=== PATIENT | male | born 1990 | race Caucasian/White ===

== ENCOUNTER 2016-06-17 15:27 | Emergency (ER) | payer BC ==
[2016-06-17 16:01] VITALS: BP 103/65
--- NOTE | 2016-06-17 16:12 | UC ---
Throat Pain/Nasal Rodney HPI - HPI Summary HPI Summary: The patient comes in today for: 1. Sore throat, chest congestion: Onset: 3 days ago. Palliative/provocative: Swallowing makes it worse. Quality: Scratchy. Region: Bilateral posterior pharynx. Severity: 4/10 Time: Constant. Associated symptoms: Rhinitis: [place] Sinus pressure: None. Fevers: last night 101.4 Cough: Present, but not productive. Wheezing: None Chest pain: None at this time. Dyspnea: none. INhaler use: when he was 7-8 years old. * - History of Current Complaint Chief Complaint: UCGeneralIllness Stated Complaint: FEVER,CONGESTION,ST Time Seen by Provider: 06/17/16 16:06 - Allergies/Home Medications Allergies/Adverse Reactions: Allergies Allergy/AdvReac Type Severity Reaction Status Date / Time No Known Allergies Allergy Verified 06/17/16 16:01 Home Medications: Home Medications Ibuprofen TAB* [Advil TAB*] 800 mg PO Q6H PRN 06/17/16 [History Confirmed ] PMH/Surg Hx/FS Hx/Imm Hx Previously Healthy: Yes Endocrine History Of: Denies: Diabetes, Thyroid Disease, Hyperthyroidism, Hypothyroidism, Dyslipidemia Cardiovascular History Of: Denies: Cardiac Disorders, Hypertension, Pacemaker/ICD, Myocardial Infarction , Congestive Heart Failure, Atrial Fibrillation, Deep Vein Thrombosis, Bleeding Disorders Respiratory History Of: Denies: COPD, Asthma, Bronchitis, Pneumonia, Pulmonary Embolism GI/ History Of: Denies: Gastroesophageal Reflux, Ulcer, Gastrointestinal Bleed, Gall Bladder Disease, Kidney Stones, Diverticulitis, Renal Disease, Urosepsis Neurological History Of: Denies: TIA, CVA, Dementia, Seizures, Migraine Psychological History Of: Denies: Anxiety, Depression, Bipolar Disorder, Schizophrenia, Post Traumatic Stress Disorder Cancer History Of: Denies: Lung Cancer, Colorectal Cancer, Breast Cancer, Prostate Cancer, Cervical Cancer Other History Of: Negative For: HIV, Hepatitis B, Hepatitis C, Anticoagulant Therapy - Surgical History Surgical History: Yes Surgery Procedure, Year, and Place: CHEST TUBE - Family History Known Family History: Positive: Hypertension, Diabetes - Social History Occupation: Employed Full-time Alcohol Use: None Substance Use Type: None Smoking Status (MU): Never Smoked Tobacco Review of Systems Constitutional: Negative Skin: Negative Eyes: Negative ENT: Sore Throat, Nasal Discharge Respiratory: Cough Cardiovascular: Negative Gastrointestinal: Negative Genitourinary: Negative All Other Systems Reviewed And Are Negative: Yes Physical Exam Triage Information Reviewed: Yes Appearance: Well-Appearing, No Pain Distress, Well-Nourished Vital Signs: Initial Vital Signs Temp 97.5 F 06/17/16 15:54 Pulse 63 06/17/16 15:54 Resp 12 06/17/16 15:54 BP 103/65 06/17/16 15:54 Pulse Ox 100 06/17/16 15:54 Vital Signs Reviewed: Yes Eyes: Positive: Conjunctiva Clear. Negative: Discharge ENT: Positive: Hearing grossly normal. Negative: Pharyngeal erythema, Nasal congestion, Nasal drainage, TM bulging, TM dull, TM red, Tonsillar swelling, Tonsillar exudate Dental: Negative: Gross Decay/Caries @, Dental Fracture @ Neck: Positive: Supple, Nontender, No Lymphadenopathy. Negative: Nuchal Rigidity Respiratory: Positive: Chest non-tender, Lungs clear, No respiratory distress, No accessory muscle use. Negative: Rhonchi, Wheezing Cardiovascular: Positive: RRR, No Murmur Abdomen Description: Positive: Nontender, No Organomegaly, Soft. Negative: Distended, Guarding Musculoskeletal: Positive: Strength Intact, ROM Intact, No Edema Neurological: Positive: Alert, Muscle Tone Normal Psychological: Positive: Age Appropriate Behavior, Consolable Skin: Negative: rashes, breakdown Diagnostics - Laboratory Diagnostic Studies Completed/Ordered: Strep test: (-) Throat Pain/Nasal Course/Dx - Differential Dx/Diagnosis Provider Diagnoses: pharyngitis. Sinusitis Discharge - Discharge Plan Condition: Stable Disposition: HOME Patient Education Materials: Pharyngitis (ED), Sinusitis (ED) Forms: *Work Release Referrals: No Primary Care Phys,NOPCP [Primary Care Provider] -
== END 2016-06-17 16:45 | disposition home or self-care (01) ==
LOC: UCCORT 15:27
DX: J02.9 Acute pharyngitis, unspecified (principal); J32.9 Chronic sinusitis, unspecified
CPT/HCPCS: 87651; 99212; G0463

== ENCOUNTER 2017-01-26 07:57 | Emergency (ER) | payer BC ==
[2017-01-26 08:36] VITALS: BP 123/68
--- NOTE | 2017-01-26 09:16 | RAD ---
Indication: Dropped weight on LEFT foot last night. Medial pain and swelling. Comparison: No relevant prior exams available on the [facility] for comparison. Technique: AP, lateral, and oblique views LEFT foot. Report: Oblique transverse lucency through the sesamoid at the medial head of the flexor hallucis brevis at the first metatarsal phalangeal joint. The radiographic appearance is concerning for potential acute grossly nondisplaced sesamoid fracture. The differential includes normal variant bipartite sesamoid. The osseous structures are otherwise unremarkable. Normal articular alignment. Mild soft tissue swelling at the plantar aspect of the forefoot. IMPRESSION: Potential acute grossly nondisplaced fracture at the medial sesamoid at the first metatarsal phalangeal joint.
--- NOTE | 2017-01-26 09:58 | UC ---
Lower Extremity/Ankle HPI - HPI Summary HPI Summary: Pt reports that he dropped a 45lb weight on left mid anterior foot and now c/o tenderness, swelling and inability to bear full weight on left foot. - History of Current Complaint Chief Complaint: UCLowerExtremity Stated Complaint: LT FOOT INJURY Time Seen by Provider: 01/26/17 08:36 Onset/Duration: Sudden Onset, Lasting Hours, Still Present Severity Initially: Moderate Severity Currently: Mild Aggravating Factor(s): Standing, Ambulation Alleviating Factor(s): Rest, Elevation Able to Bear Weight: Yes - minimum - Risk Factors Gout Risk Factors: Male - Allergies/Home Medications Allergies/Adverse Reactions: Allergies Allergy/AdvReac Type Severity Reaction Status Date / Time No Known Allergies Allergy Verified 01/26/17 08:28 PMH/Surg Hx/FS Hx/Imm Hx Previously Healthy: Yes Other History Of: Negative For: HIV, Hepatitis B, Hepatitis C, Anticoagulant Therapy - Surgical History Surgical History: Yes Surgery Procedure, Year, and Place: Spontaneous Pneumothorax, 2010, [place] - Family History Known Family History: Positive: Hypertension, Diabetes - Social History Occupation: Employed Full-time Lives: With Family Alcohol Use: None Substance Use Type: None Smoking Status (MU): Never Smoked Tobacco Have You Smoked in the Last Year: No - Immunization History Most Recent Influenza Vaccination: Not the 2016/2017 Season Most Recent Tetanus Shot: ~2011 Vaccination Up to Date: No Review of Systems Constitutional: Negative Skin: Bruising - left dorsal aspect of foot Eyes: Negative ENT: Negative Respiratory: Negative Cardiovascular: Negative Gastrointestinal: Negative Motor: Decreased ROM - left foot Neurovascular: Negative Musculoskeletal: Arthralgia, Decreased ROM, Edema, Myalgia Neurological: Negative Psychological: Negative Is Patient Immunocompromised?: No All Other Systems Reviewed And Are Negative: Yes Physical Exam Triage Information Reviewed: Yes Vital Signs: Initial Vital Signs Temp 98.3 F 01/26/17 08:25 Pulse 64 01/26/17 08:25 Resp 16 01/26/17 08:25 BP 123/68 01/26/17 08:25 Pulse Ox 100 01/26/17 08:25 Vital Signs Reviewed: Yes Eye Exam: Normal ENT Exam: Normal Dental Exam: Normal Neck exam: Normal Respiratory Exam: Normal Cardiovascular Exam: Normal Musculoskeletal Exam: Other Musculoskeletal: Positive: ROM Limited @, Edema @ - left foot Neurological Exam: Normal Psychological Exam: Normal Skin Exam: Other - bruising, left foot, Lower Extremity Course/Dx - Course Course Of Treatment: IMPRESSION: Potential acute grossly nondisplaced fracture at the medial sesamoid at the. first metatarsal phalangeal joint. - Differential Dx/Diagnosis Differential Diagnosis/HQI/PQRI: Contusion, Fracture (Closed) Provider Diagnoses: left foot fracture. IMPRESSION: Potential acute grossly nondisplaced fracture at the medial sesamoid at the. first metatarsal phalangeal joint. Discharge - Discharge Plan Condition: Stable Disposition: HOME Patient Education Materials: Foot Fracture in Adults (ED) Forms: *Work Release Referrals: Juan Villatoro MD [Medical Doctor] - 1 Day No Primary Care Phys,NOPCP [Primary Care Provider] - Additional Instructions: IMPRESSION: Potential acute grossly nondisplaced fracture at the medial sesamoid at the first metatarsal phalangeal joint.
== END 2017-01-26 09:54 | disposition home or self-care (01) ==
LOC: UCCORT 07:57
DX: S92.312A Displaced fracture of first metatarsal bone, left foot, initial encounter for closed fracture (principal); W20.8XXA Other cause of strike by thrown, projected or falling object, initial encounter; Y92.9 Unspecified place or not applicable
CPT/HCPCS: 99213; G0463